=== PATIENT | male | born 1940 | race Two or more races ===

== ENCOUNTER 2025-06-11 14:55 | Emergency (ER) | payer MEDICARE, OTHER, SELFPAY ==
[2025-06-11 15:10] VITALS: BP 133/75; PULSE 60; TEMP 36.5; O2SAT 99; BMI 28.7
--- OUTSIDE RECORDS SUMMARY | 2025-06-11 15:23 | XMS_ITS | Encounter Summary ---
Author Organization Simple Admit tem Address [id number] [address] [place] [address] Care Team Providers Care Search Planner Name Role Phone Unavailable Primary Care Provider Unavailabl e Encounter Details Date Type Department Care Team (Late st Contact Info) Description 05/17/2025 Orders Only [facility] - Medical Oncology [address] [place] [phone] Elisabeth Grayson CMA Social History Tobacco Use Types Packs/Day Years Used Date Smoking Tobacco: Never Assessed Childcare Answer Date Recorded Childcare Unknown 03/10/2019 Employment Answer Date Recorded Employment Unknown 03/10/2019 Sex and Gender Information Value Date Recorded Sex Assigned at Not on file Legal Sex Male 11:48 AM EDT Gender Identity Not on file Sexual Orientation Not on file documented as of this encounter Plan of Treatment Upcoming Encounters Date Type Department Care Team (Late st Contact Info) Description 08/23/2025 11:00 AM EST [facility] [address] [place] [phone] documented as of this encounter Visit Diagnoses Not on filedocumented in this encounter
--- OUTSIDE RECORDS SUMMARY | 2025-06-11 15:23 | XMS_ITS | Encounter Summary ---
Author Organization [facility] Address [address] [place] [address] Care Team Providers Care Aerodynamics Professor Name Role Phone Sharonda Lopez ICING AND GLAZE MAKER Primary Care Provider + [phone] Pao Carlos DO Unavailable [phone] Pao Carlos DO Unavailable [phone] Samara Argueta DO Primary Care Provider [phone] Encounter Details Date Type Department Care Team (Late st Contact Info) Description 07/21/2024 Orders Only [facility] [address] [facility] [address] [place] [address] Samara Argueta DO [address] [facility] [place] [address] Social History Tobacco Use Types Packs/Day Years Used Date Smoking Tobacco: Never Smokeless Tobacco: Never Alcohol Use Standard Drinks/Week Comments Not Currently 0 (1 standard drink = 0.6 oz pur e alcohol) Social Connection and Isolat ion Panel [NHANES] Answer Date Recorded In a typical week, how many times do you talk on the phone with family, friends, or neighbors? More than three times a week 11/30/2023 How often do you get togethe r with friends or relatives? More than three times a week 11/30/2023 How often do you attend chur ch or gnosticism services? Never 11/30/2023 Do you belong to any clubs o r organizations such as druze groups, unions, fraternal or athletic groups, or school groups? No 11/30/2023 How often do you attend meet ings of the clubs or organizations you belong to? Never 11/30/2023 Are you , , di vorced, , never , or living with a partner? 11/30/2023 AUDIT-C Answer Date Recorded Q1: How often do you have a drink containing alcohol? Never 11/30/2023 Q2: How many drinks containi ng alcohol do you have on a typical day when you are drinking? Patient does not drink Q3: How often do you have si x or more drinks on one occasion? Never 11/30/2023 Overall Financial Resource Strain (CARDIA) Answe r Date Recorded How hard is it for you to pa y for the very basics like food, housing, medical care, and heating? Not hard at all 11/30/2023 PHQ-2 Answer Date Recorded Patient Health Questionnaire-2 Score 0 04/17/2023 [facility] - Occupational Stress Questionnaire Answer Date Recorded Do you feel stress - tense, restless, nervous, or anxious, or unable to sleep at night because your mind is troubled all the time - these days? Very much 11/30/2023 Exercise Vital Sign Answer Date Recorde d On average, how many days pe r week do you engage in moderate to strenuous exercise (like a brisk walk)? 0 days 11/30/2023 On average, how many minutes do you engage in exercise at this level? 0 min 11/30/2023 Hunger Vital Sign Answer Date Recorded Within the past 12 months, y ou worried that your food would run out before you got the money to buy more. Never true 11/30/19 24 Within the past 12 months, t he food you bought just didn't last and you didn't have money to get more. Never true 11/30/2023 PRAPARE - Transportation Answer Date Re corded In the past 12 months, has l ack of transportation kept you from medical appointments or from getting medications? No 11/2023 In the past 12 months, has l ack of transportation kept you from meetings, work, or from getting things needed for daily living? No 11/30/2023 Housing Stability Vital Sign Answer Richard e Recorded In the last 12 months, was t here a time when you were not able to pay the mortgage or rent on time? No 11/30/2023 Number of Places Lived in the Last Year Not on f ile 11/30/2023 In the last 12 months, was t here a time when you did not have a steady place to sleep or slept in a longterm (including now)? No 11/30/2023 Sex and Gender Information Value Date Recorded Sex Assigned at Not on file Legal Sex Male 7:18 PM EDT Gender Identity Not on file Sexual Orientation Not on file documented as of this encounter Plan of Treatment Upcoming Encounters Date Type Department Care Team (Late st Contact Info) Description 07/07/2025 10:30 AM EDT [facility] [address] [place] [phone] Pao Carlos DO [address] [place] [address] 07/19/2025 10:15 AM EDT Procedure [facility] [address] [place] [phone] Sherita Guerra DPM [address] [place] [address] documented as of this encounter Procedures Procedure Name Priority Date/Time Associated Diagnosis Comments NM HEPATOBILIARY Routine 07/21/2024 12:58 PM EDT US GALLBLADDER Routine 06/27/2024 1:10 PM EDT documented in this encounter Results * NM hepatobiliary (07/21/2024 12:58 PM EDT) Anatomical Region Laterality Modality Body Nuclear Medicine us Samarakira Argueta DO IMG NM PROCEDURES Final Resul t * US gallbladder (06/27/2024 1:10 PM EDT) Anatomical Region Laterality Modality Gall bladder Ultrasound us Samara Argueta DO IMG US PROCEDURES Final Resul t documented in this encounter Visit Diagnoses Not on filedocumented in this encounter Care Teams Aerodynamics Professor Relationship Specialty Start Date End Date Sharonda Lopez, ICING AND GLAZE MAKER PCP - General 04/17/23 01/16/25 Pao Carlos, DO [address] [facility] [address] [place] [address] PCP - ACO Reach 01/28/24 11/04/24 Pao Carlos, DO [address] [facility] [address] [place] [address] PCP - ACO Reach 11/12/24 12/30/24 Samara Argueta DO [address] [facility] [place] [address] PCP - General Family Medicine 01/17/25 documented as of this encounter
--- OUTSIDE RECORDS SUMMARY | 2025-06-11 15:23 | XMS_ITS | Encounter Summary ---
Author Organization [facility] Address [address] [place] [address] Phone Care Team Providers Care Optical Mechanic Apprentice Name Role Phone Sharonda Lopez Primary Care Prov ider Samara Argueta DO Primary Care Provider [phone] Encounter Details Date Type Department Care Team (Late st Contact Info) Description 11/08/2021 Orders Only [facility] [address] [place] [address] Conversion, Onbase Social History Tobacco Use Types Packs/Day Years Used Date Smoking Tobacco: Never Assessed Sex and Gender Information Value Date Recorded Sex Assigned at Not on file Legal Sex Male 1:06 PM EST Gender Identity Not on file Sexual Orientation Not on file documented as of this encounter Plan of Treatment Upcoming Encounters Date Type Department Care Team (Late st Contact Info) Description 08/04/2025 10:30 AM EST Office Visit [facility] [address] [facility] [address] [place] [phone] Terrell Dominguez DO [address] [place] [address] Scheduled Orders Name Type Priority Associated Diagnoses Orde r Schedule OUTSIDE LAB SCAN Lab Ordered: 11/08/2021 OUTSIDE LAB SCAN Lab Ordered: 11/08/2021 documented as of this encounter Visit Diagnoses Not on filedocumented in this encounter Care Teams Optical Mechanic Apprentice Relationship Specialty Start Date End Date Sharonda Lopez APRN-CNP [address] [facility] [place] [address] PCP - General 07/21/19 03/29/25 Samara Argueta DO [address] [facility] [place] [address] PCP - General 03/30/25 documented as of this encounter
--- OUTSIDE RECORDS SUMMARY | 2025-06-11 15:23 | XMS_ITS | Encounter Summary ---
Author Organization [facility] Address [address] [place] [address] Phone Care Team Providers Care Small Business Consultant Name Role Phone Sharonda Lopez Primary Care Prov ider Samara Argueta DO Primary Care Provider [phone] Encounter Details Date Type Department Care Team (Late st Contact Info) Description 12/05/2023 Scanned Document [facility] [address] [place] [address] Scanning, Generic Provider Social History Tobacco Use Types Packs/Day Years Used Date Smoking Tobacco: Former Cigarettes Q uit: 1982 Smokeless Tobacco: Never Alcohol Use Standard Drinks/Week Comments Not Currently 0 (1 standard drink = 0.6 oz pur e alcohol) Sex and Gender Information Value Date Recorded Sex Assigned at Not on file Legal Sex Male 1:06 PM EST Gender Identity Not on file Sexual Orientation Not on file documented as of this encounter Plan of Treatment Upcoming Encounters Date Type Department Care Team (Late st Contact Info) Description 08/04/2025 10:30 AM EST Office Visit [facility] [address] [facility] [address] [place] [address] Terrell Dominguez DO [address] [facility] [address] [place], [place] [phone] documented as of this encounter Visit Diagnoses Not on filedocumented in this encounter Care Teams Small Business Consultant Relationship Specialty Start Date End Date Sharonda Lopez APRN-CNP [address] [facility] [place] [address] PCP - General 07/21/19 03/29/25 Samara Argueta DO [address] [facility] [place] [address] PCP - General 03/30/25 documented as of this encounter
--- OUTSIDE RECORDS SUMMARY | 2025-06-11 15:23 | XMS_ITS | Encounter Summary ---
Author Organization [facility] Address [address] [place] [address] Phone Care Team Providers Care Informatics Nurse Name Role Phone Sharonda Lopez TERMITE CONTROL REPRESENTATIVE-EASTON Primary Care Prov ider Samara Argueta DO Primary Care Provider [phone] Encounter Details Date Type Department Care Team (Late st Contact Info) Description 01/30/2024 Scanned Document [facility] [address] [place] [phone] Scanning, Generic Provider Social History Tobacco Use [...] on file Sexual Orientation Not on file COVID-19 Exposure Response Date Recorded In the last 10 days, have yo u been in contact with someone who was confirmed or suspected to have Coronavirus/COVID-19? No / Unsure 01/12/2024 7:38 AM EDT documented as of this encounter Plan of Treatment Upcoming Encounters Date Type Department Care Team (Late st Contact Info) Description 08/04/2025 10:30 AM EST Office Visit [facility] [address] [facility] [address] [place] [phone] Terrell Dominguez DO [address] [facility] [address] [place] [address] documented as of this encounter Visit Diagnoses Not on filedocumented in this encounter Additional Health Concerns Assessment Noted Time A fall risk assessment has been complete d for the patient 12/30/2023 10:21 AM EDT documented as of this encounter Care Teams Informatics Nurse Relationship Specialty Start Date End Date Sharonda Lopez APRN-CNP [address] [facility] [place] [address] PCP - General 07/21/19 03/29/25 Samara Argueta DO [address] [facility] [place] [address] PCP - General 03/30/25 documented as of this encounter
--- OUTSIDE RECORDS SUMMARY | 2025-06-11 15:23 | XMS_ITS | Encounter Summary ---
Author Organization [facility] Address [address] [place] [address] Phone Care Team Providers Care Beauty Therapist Name Role Phone Sharonda Lopez WIRE TWISTING MACHINE OPERATOR-EASTON Primary Care Prov ider Samara Argueta DO Primary Care Provider [phone] Encounter Details Date Type Department Care Team (Late st Contact Info) Description 11/22/2024 Scanned Document [facility] [address] [place] [address] Scanning, Generic Provider Social History Tobacco Use [...] Description 08/04/2025 10:30 AM EST Office Visit [facility] [address] [facility] [address] [place] [address] Terrell Dominguez DO [address] [facility] [address] [place], [place] [phone] documented as of this encounter Visit Diagnoses Not on filedocumented in this encounter Additional Health Concerns Assessment Noted Time A fall risk assessment has been complete d for the patient 03/10/2024 1:07 PM EDT documented as of this encounter Care Teams Beauty Therapist Relationship Specialty Start Date End Date Sharonda Lopez APRN-EAST[place] [address] [facility] [place] [facility] [place] [address] PCP - General 07/21/19 03/29/25 Samara Argueta DO [address] [facility] [place] [address] PCP - General 03/30/25 documented as of this encounter
--- OUTSIDE RECORDS SUMMARY | 2025-06-11 15:23 | XMS_ITS | Encounter Summary ---
Author Organization [facility] Address [address] [place] [address] Phone Care Team Providers Care Painter Name Role Phone Sharonda Lopez HOSPICE CARE SALES CONSULTANT-EASTON Primary Care Prov ider Samara Argueta DO Primary Care Provider [phone] Encounter Details Date Type Department Care Team (Late st Contact Info) Description 02/25/2024 Scanned Document [facility] [address] [place] [address] Scanning, Generic Provider Social History Tobacco Use [...] Description 08/04/2025 10:30 AM EST [facility] [address] [facility] [address] [place] [address] Terrell Dominguez DO [address] [facility] [address] [place], [place] [phone] documented as of this encounter Visit Diagnoses Not on filedocumented in this encounter Additional Health Concerns Assessment Noted Time A fall risk assessment has been complete d for the patient 12/30/2023 10:21 AM EDT documented as of this encounter Care Teams Painter Relationship Specialty Start Date End Date Sharonda Lopez APRN-EASTON [address] [facility] [place] [facility] [place] [address] PCP - General 07/21/19 03/29/25 Samara Argueta DO [address] [facility] [place] [address] PCP - General 03/30/25 documented as of this encounter
--- OUTSIDE RECORDS SUMMARY | 2025-06-11 15:23 | XMS_ITS | Encounter Summary ---
Author Organization [facility] Address [address] [place] [address] Phone Care Team Providers Care Office Asst Name Role Phone Sharonda Lopez Primary Care Prov ider Samara Argueta DO Primary Care Provider [phone] Encounter Details Date Type Department Care Team (Late st Contact Info) Description 12/11/2023 Scanned Document [facility] [address] [place] [address] Scanning, Generic Provider Social History Tobacco Use [...] Description 08/04/2025 10:30 AM EST Office Visit [facility] [address] [facility] [address] [place] [address] Terrell Dominguez DO [address] [facility] [address], [address] [place], [place] [phone] documented as of this encounter Visit Diagnoses Not on filedocumented in this encounter Care Teams Office Asst Relationship Specialty Start Date End Date Sharonda Lopez APRN-CNP [address] [facility] [place] [address] PCP - General 07/21/19 03/29/25 Samara Argueta DO [address] [facility] [place] [address] PCP - General 03/30/25 documented as of this encounter
--- OUTSIDE RECORDS SUMMARY | 2025-06-11 15:23 | XMS_ITS | Encounter Summary ---
Author Organization [facility] Address [address] [place] [address] Care Team Providers Care Car Wash Attendant Automatic Name Role Phone Sharonda Lopez NP Primary Care Provider [phone] Pao Carlos DO Unavailable [phone] Pao Carlos DO Unavailable [phone] Samara Argueta DO Primary Care Provider [phone] Encounter Details Date Type Department Care Team (Late st Contact Info) Description 12/05/2023 Abstract [facility] [place] [facility] [address] [facility] [address] [place] [address] Pao Carlos DO [address] [facility] [address] [place] [address] Social History Tobacco Use Types Packs/Day Years [...] often do you attend chur ch or worship services? Never 11/30/2023 Do you belong to any clubs o r organizations such as sabianism groups, unions, fraternal or athletic groups, or [...] Recorded Patient Health Questionnaire-2 Score 0 04/17/2023 [facility] - Occupational Stress Questionnaire Answer Date [...] place to sleep or slept in a nursing home (including now)? No 11/30/2023 Sex and Gender Information Value Date Recorded Sex Assigned at Not on file Legal Sex Male 7:18 PM EDT Gender Identity Not on file Sexual Orientation Not on file documented as of this encounter Plan of Treatment Upcoming Encounters Date Type Department Care Team (Late st Contact Info) Description 07/07/2025 10:30 AM EDT [facility] [address] [place] [phone] Pao Carlos, DO [address] [place] [address] 07/19/2025 10:15 AM EDT Procedure [facility] [address] [place] [phone] Sherita Guerra DPM [address] [place] [address] documented as of this encounter Visit Diagnoses Not on filedocumented in this encounter Care Teams Car Wash Attendant Automatic Relationship Specialty Start Date End Date Sharonda Lopez, DRILL PRESS OPERATOR NUMERICAL CONTROL PCP - General 04/17/23 01/16/25 Pao Carlos, DO [address] [place] [address] PCP - ACO Reach 01/28/24 11/04/24 Pao Carlos DO [address] [place] [address] PCP - ACO Reach 11/12/24 12/30/24 Samara Argueta DO [address] [facility] [place] [address] PCP - General Family Medicine 01/17/25 documented as of this encounter
--- OUTSIDE RECORDS SUMMARY | 2025-06-11 15:23 | XMS_ITS | Encounter Summary ---
Author Organization [facility] Address [address] [place] [address] Phone Care Team Providers Care Barrel Straightener Name Role Phone Sharonda Lopez Primary Care Prov ider Samara Argueta DO Primary Care Provider Encounter Details Date Type Department Care Team (Late st Contact Info) Description 01/03/2023 Orders Only [facility] [address] [place] [address] Conversion, Onbase Social History Tobacco Use Types [...] Description 08/04/2025 10:30 AM EST Office Visit [facility] [address] [facility] [address] [place] [address] Terrell Dominguez DO [address] [place], [place] [phone] Scheduled Orders Name Type Priority Associated Diagnoses Orde r Schedule OUTSIDE LAB SCAN Lab Ordered: 01/03/2023 documented as of this encounter Visit Diagnoses Not on filedocumented in this encounter Care Teams Barrel Straightener Relationship Specialty Start Date End Date Sharonda Lopez APRN-CNP [address] [facility] [place] [address] PCP - General 07/21/19 03/29/25 Samara Argueta DO [address] [facility] [place] [address] PCP - General 03/30/25 documented as of this encounter
--- OUTSIDE RECORDS SUMMARY | 2025-06-11 15:23 | XMS_ITS | Clinical Summary ---
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) Discharge Disposition: Still a Patient 05/25/2025 Orders [facility] [address] [place] [phone] Susan Montiel RN Prostate cancer ([facility]) (Primary Dx) 05/25/2025 Orders Only [facility] [address] [place] [phone] Susan Montiel RN Prostate cancer ([facility]) (Primary Dx) 05/25/2025 Documentation [facility] [address] [place] [phone] Susan Montiel RN 05/25/2025 Orders Only [facility] [address] [place] [address] [phone] Susan Montiel RN Prostate cancer ([facility]) (Primary Dx) 05/25/2025 Travel 05/19/2025 Travel 05/17/2025 Orders Only [facility] - Medical Oncology [address] [place] [phone] Elisabeth Grayson CMA from Last 3 Months Social History Tobacco Use Types Packs/Day Years Used Date Smoking Tobacco: Never Assessed Childcare Answer Date Recorded Childcare Unknown 03/10/2019 Employment Answer Date Recorded Employment Unknown 03/10/2019 Sex and Gender Information Value Date Recorded Sex Assigned at Not on file Legal Sex Male 11:48 AM EDT Gender Identity Not on file Sexual Orientation Not on file Last Filed Vital Signs Vital Sign Reading Time Taken Comments Blood Pressure 103/58 05/25/2025 10:16 AM EDT Pulse 64 05/25/2025 10:16 AM EDT Temperature 37 C (98.6 F) 05/25/2025 10:16 AM EDT Respiratory Rate 18 05/25/2025 10:16 AM EDT Oxygen Saturation 100% 05/25/2025 10:16 AM EDT Inhaled Oxygen Concentration - - Weight 83.7 kg (184 lb 9.6 oz) 05/25/2025 10:16 AM EDT Height 170.2 cm (5' 7 ) 05/25/2025 10:16 AM EDT Body Mass Index 28.91 05/25/2025 10:16 AM EDT Plan of Treatment Upcoming Encounters Date Type Department Care Team (Late st Contact Info) Description 08/23/2025 11:00 AM EST Appointment [facility] - Radiation Oncology [address] [place] [address] Health Maintenance Due Date Last Done Comments Depression Screening 1952 Tobacco Screening 1952 DTaP,Tdap and Td Vaccines (1 - Tdap) 01/08/1959 Fall Risk Screening 01/08/2005 Zoster (Shingles) Vaccine (1 of 2) 09/29/2017 08/04/2017 COVID-19 Vaccine (7 - Pfizer risk 2023- season) 2025 06/22/2024, 07/07/2023, 01/06/2022, Additional history exists Influenza Vaccine 05/30/2025 06/22/2024, , 07/24/2022, Additional history exists Medical Devices Not on file Procedures Procedure Name Priority Date/Time Associated Diagnosis Comments PROSTATIC SPECIFIC ANTIGEN, DIAGNOSTIC Routine 05/25/2025 3:38 PM EDT Prostate cancer ([facility]) from Last 3 Months Results * Prostatic specific antigen, diagnostic (05/25/2025 3:38 PM EDT) PROSTATIC SPEC ANT 0.04 0.00 - 4.00 ng/mL 05/25/2025 10:20 PM EDT [facility] Comment: The method used for this test is Rosalind IdealSeat DXI chemiluminescent immunoassay. Values obtained by different assay methods cannot be used interchangeably. Blood Venous blood / Unknown Venipuncture / Unknown 05/25/2025 3:38 PM EDT 05/25/2025 3:38 PM EDT us Keturah Acevedo MD LAB BLOOD ORDERABLES Final Result [facility] [address] [place] [address], from Last 3 Months Insurance MEDICARE COMMERCIAL
--- OUTSIDE RECORDS SUMMARY | 2025-06-11 15:23 | XMS_ITS | Encounter Summary ---
Author Organization [facility] Address [address] [place] [address] Care Team Providers Care Structural Technician Name Role Phone Pao Carlos DO Unavailable [phone] Sharonda Lopez NP Primary Care Provider [phone] Pao Carlos DO Unavailable [phone] Pao Carlos DO Unavailable [phone] Samara Argueta DO Primary Care Provider [phone] Reason for Visit * Reason Comments Med Refill Encounter Details Date Type Department Care Team (Late st Contact Info) Description 05/03/2023 [facility] [address] [facility] [address] [place] [phone] Pao Carlos, DO [address] [facility] [address] [place], [place] [phone] 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 Never 04/17/2023 Q2: How many drinks containi ng alcohol do you have on a typical day when you are drinking? Patient does not drink Q3: How often do you have si x or more drinks on one occasion? Never 04/17/2023 PHQ-2 Answer Date Recorded Patient Health Questionnaire-2 Score 0 04/17/2023 Sex and Gender Information Value Date Recorded Sex Assigned at Not on file Legal Sex Male 7:18 PM EDT Gender Identity Not on file Sexual Orientation Not on file documented as of this encounter Miscellaneous Notes * Telephone Encounter - Sharonda Sam LPN - 05/05/2023 12:41 PM EDT Approving, but needs appt for additional refills. 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) documented in this encounter Care Teams Structural Technician Relationship Specialty Start Date End Date Pao Carlos DO [address] [place] [address] PCP - ACO Reach 02/20/23 11/27/23 Sharonda Lopez, JOINERY MACHINIST [address] [place] [address] PCP - General 04/17/23 01/16/25 Pao Carlos DO [address] [place] [address] PCP - ACO Reach 01/28/24 11/04/24 Pao Carlos, DO [address] [place] [address] PCP - ACO Reach 11/12/24 12/30/24 Samara Argueta, DO [address] [facility] [place] [address] PCP - General Family Medicine 01/17/25 documented as of this encounter
--- OUTSIDE RECORDS SUMMARY | 2025-06-11 15:23 | XMS_ITS | Encounter Summary ---
Author Organization [facility] Address [address] [place] [address] Phone Care Team Providers Care Physical Therapist Technician Name Role Phone Sharonda Lopez Primary Care Prov ider Samara Argueta DO Primary Care Provider [phone] Encounter Details Date Type Department Care Team (Late st Contact Info) Description 10/28/2022 Orders Only [facility] [address] [place] [address] Conversion, Onbase Social History Tobacco Use Types [...] Description 08/04/2025 10:30 AM EST Office Visit [facility] [address] [facility] [address] [place] [phone] Terrlel Dominguez DO [address] [place] [address] Scheduled Orders Name Type Priority Associated Diagnoses Orde r Schedule OUTSIDE LAB SCAN Lab Ordered: 10/28/2022 OUTSIDE LAB SCAN Lab Ordered: 10/28/2022 documented as of this encounter Visit Diagnoses Not on filedocumented in this encounter Care Teams Physical Therapist Technician Relationship Specialty Start Date End Date Sharonda Lopez APRN-CNP [address] [facility] [place] [address] PCP - General 07/21/19 03/29/25 Samara Argueta DO [address] [facility] [place] [address] PCP - General 03/30/25 documented as of this encounter
--- OUTSIDE RECORDS SUMMARY | 2025-06-11 15:23 | XMS_ITS | Clinical Summary ---
Author Organization [facility] Address [address] [place] [address] Phone Care Team Providers Care Technology Project Manager Name Role Phone Samara Argueta DO Primary Care Provider [phone] Allergies No known active allergies Medications aspirin 81 mg EC tablet Take 1 tablet (81 mg) by mouth once daily. 1 Active HumaLOG Mix 50-50 Insuln U-100 100 unit/mL (50-50) injection Inject under the skin. 1 Active rosuvastatin (Crestor) 40 mg tablet Take 1 tablet (40 mg) by mouth once daily. Active gabapentin (Neurontin) 300 mg capsule Take 1 capsule (300 mg) by mouth early in the morning.. 4 Active nitroglycerin (Nitrostat) 0.4 mg SL tabletIndications :Coronary artery disease involving pechanga coronary artery of pechanga heart without angina pectoris,History of PTCA,Chest pain, unspecified type Place 1 tablet (0.4 mg) under the tongue every 5 minutes if needed for chest pain (report to the ER or call 911 after third dose). May repeat dose every 5 minutes for up to 3 doses total. 15 tablet 1 4 Active clopidogrel (Plavix) 75 mg tabletIndications :History of PTCA Take 1 tablet (75 mg) by mouth once daily. 90 tablet 3 5 11/18/19 Active hydrALAZINE (Apresoline) 50 mg tabletIndications :Essential hypertension Take 1 tablet (50 mg) by mouth 3 times a day. 270 tablet 3 5 05/01/20 26 Active amLODIPine (Norvasc) 10 mg tablet Take 1 tablet (10 mg) by mouth once daily in the morning. Take before meals. Active magnesium oxide (Mag-Ox) 400 mg (241.3 mg elemental) tablet Take 1 tablet by mouth early in the morning.. 5 Active isosorbide mononitrate ER (Imdur) 60 mg 24 hr tabletIndications :Essential hypertension Take 1 tablet (60 mg) by mouth once daily. 90 tablet 3 5 03/30/20 26 Active metoprolol succinate XL (Toprol-XL) 25 mg 24 hr tabletIndications :Essential hypertension TAKE 1 TABLET(25 MG) BY MOUTH DAILY. DO NOT CRUSH OR CHEW 90 tablet 3 Active Active Problems Problem Noted Date Diagnosed Date ACEI/ARB contraindicated 01/27/2025 BMI 28.0-28.9,adult 05/11/2024 Chronic kidney disease 05/11/2024 Abnormal stress test 01/15/2024 Prostate cancer (Multi) 12/30/2023 Chest pain 12/30/2023 Shortness of breath 12/30/2023 Former smoker 12/30/2023 Angina, class III 08/15/2023 Coronary disease 08/15/2023 Diabetes mellitus (Multi) 08/15/2023 Essential hypertension 08/15/2023 History of PTCA 08/15/2023 Hyperlipidemia 08/15/2023 Pacemaker 08/15/2023 Sick sinus syndrome (Multi) 08/15/2023 Encounters Date Type Department Care Team Description 05/03/2025 10:00 AM EDT Office Visit [address] [phone] Hetal Guerra, SYRUP FILTERER-CORPORATE TRAINER BMI 28.0-28.9,adult (Primary Dx); Essential hypertension 05/03/2025 Travel 03/31/[address] [address] Fouzia Landis LPN 03/30/2025 10:30 AM EDT Office Visit [address] [address] Hetal Guerra APRN-CNP BMI 28.0-28.9,adult (Primary Dx); Essential hypertension 03/30/2025 Telephone [facility] [address] [place] [phone] Bambi Clement RN 03/30/2025 Refill [facility] [address] [place] [address] [address] [place] [address] Hetal Guerra APRN-CNP Essential hypertension 03/30/2025 Travel 03/18/2025 Orders Only [facility] [address] [place] [address] Terrell Dominguez DO from Last 3 Months Immunizations Immunization Administration Dates Next Due Flu vaccine, quadrivalent, h igh-dose, preservative free, age 65y+ (FLUZONE) 07/07/2023,07/24/2022,08/08/2021 Flu vaccine, trivalent, pres ervative free, HIGH-DOSE, age 65y+ (Fluzone) 06/22/2024,07/24/2022,08/08/2021,07/05,08/05/2018,08/04/2017 Influenza, Unspecified 09/09/2013,2011,06/26/2011,09/05 Pneumococcal conjugate vacci ne, 13-valent (PREVNAR 13) 08/04/2017 Pneumococcal polysaccharide vaccine, 23-valent, age 2 years and older (PNEUMOVAX 23) 08/05/2018,06/29/2018,06/29/2011 Zoster, live 08/04/2017 Family History Medical History Relation Name Comments Angina Brother Heart disease Brother Heart disease Father Heart disease Mother Relation Name Status Comments Brother Father Mother Social History Tobacco Use Types Packs/Day Years Used Date Smoking Tobacco: Former Cigarettes Q uit: 1982 Smokeless Tobacco: Never Tobacco Cessation:Counseling Given: Not Answered Alcohol Use Standard Drinks/Week Comments Never 0 (1 standard drink = 0.6 oz pur e alcohol) Sex and Gender Information Value Date Recorded Sex Assigned at Not on file Legal Sex Male 1:06 PM EST Gender Identity Not on file Sexual Orientation Not on file Last Filed Vital Signs Vital Sign Reading Time Taken Comments Blood Pressure 114/60 05/03/2025 10:02 AM EDT Pulse 64 05/03/2025 10:02 AM EDT Temperature - - Respiratory Rate - - Oxygen Saturation - - Inhaled Oxygen Concentration - - Weight 82.6 kg (182 lb) 05/03/2025 10:02 AM EDT Height 170.2 cm (5' 7 ) 05/03/2025 10:02 AM EDT Body Mass Index 28.51 05/03/2025 10:02 AM EDT Plan of Treatment Upcoming Encounters Date Type Department Care Team (Late st Contact Info) Description 08/04/2025 10:30 AM EST Office Visit [facility] [address] [facility] [address] [place] [address] Terrell Dominguez DO [address] [facility] [address] [place] [address] Health Maintenance Due Date Last Done Comments Diabetes: Hemoglobin A1C 1940 Diabetes: Urine Protein Screening 1940 Diabetes: Retinopathy Screening 01/08/1950 DTaP/Tdap/Td Vaccines (1 - Tdap) 01/08/1962 RSV High Risk: (Elderly (60+) or Population) (1 - 1-dose 75+ series) 01/08/2015 Zoster Vaccines (2 of 3) 09/29/2017 08/04/2017 COVID-19 Vaccine ( season) 2025 06/22/2024, 07/07/2023, 01/06/2022 Influenza Vaccine (#1) 2025 , 07/07/2023, 07/24/2022, Additional history exists Medicare Annual Wellness Visit (AWV) 06/24/2025 06/23/2024, 2023, 11/18/2019 Lipid Panel 03/18/2026 03/18/2025, 11/03/2019 Pneumococcal Vaccine Completed 08/05/2018, 06/29/2018, 08/04/2017, Additional history exists Welcome to Medicare Visit Discontinued 2023, 2023, 11/18/2019 HIB Vaccines Aged Out No longer eligi ble based on patient's age to complete this topic HPV Vaccines Aged Out No longer eligi ble based on patient's age to complete this topic Hepatitis A Vaccines Aged Out No long er eligible based on patient's age to complete this topic Hepatitis B Vaccines Aged Out No long er eligible based on patient's age to complete this topic IPV Vaccines Aged Out No longer eligi ble based on patient's age to complete this topic Meningococcal Vaccine Aged Out No serg miguelangel eligible based on patient's age to complete this topic Rotavirus Vaccines Aged Out No longer eligible based on patient's age to complete this topic Procedures Procedure Name Priority Date/Time Associated Diagnosis Comments ALANINE AMINOTRANSFERASE Routine 025 10:19 AM EDT AST Routine 03/18/2025 10:19 AM EDT LIPID PANEL Routine 03/18/2025 10:19 AM EDT from Last 3 Months Results * Alanine Aminotransferase (03/18/2025 10:19 AM EDT) ALT 13 9 - 46 U/L EXPO [facility] 03/18/2025 10:1 9 AM EDT 03/18/2025 10:20 AM EDT [facility]25 4:07 AM EDT FASTING:YES FASTING: YES Terrell Dominguez DO LAB BLOOD ORDERABLES Final Result [facility] [address] [facility], [address] [place] [address] * Aspartate Aminotransferase (03/18/2025 10:19 AM EDT) AST 16 10 - 35 U/L EXPO [facility] 03/18/2025 10:1 9 AM EDT 03/18/2025 10:20 AM EDT [facility] 03/19/2025 4:07 AM EDT FASTING:YES FASTING: YES Terrell Dominguez DO LAB BLOOD ORDERABLES Final Result Performing Organization Address City/[facility]/ZIP Co de Phone Number [facility] [address], [address] [place] [address] * Lipid Panel (03/18/2025 10:19 AM EDT) CHOLESTEROL, TOTAL 168 <200 mg/dL [facility] HDL CHOLESTEROL 59 > OR = 40 mg/dL [facility] TRIGLYCERIDES 78 <150 mg/dL [facility] LDL-CHOLESTEROL 92 mg/dL (calc) [facility] Comment: Reference range: <100 Desirable range <100 mg/dL for primary prevention; <70 mg/dL for patients with CHD or diabetic patients with > or = 2 CHD risk factors. LDL-C is now calculated using the Cecilio calculation, which is a validated novel method providing better accuracy than the Friedewald equation in the estimation of LDL-C. Devin SS et al. BUCKY. 2013;310(19): 1656-6849 (http://education.RiverOne/faq/GDS824) CHOL/HDLC RATIO 2.8 <5.0 (calc) [facility] NON HDL CHOLESTEROL 109 <130 mg/dL (calc) [facility] Comment: For patients with diabetes plus 1 major ASCVD risk factor, treating to a non-HDL-C goal of <100 mg/dL (LDL-C of <70 mg/dL) is considered a therapeutic option. 03/18/2025 10:1 9 AM EDT 03/18/2025 10:20 AM EDT Narrative [facility] - 03/19/2025 4:07 AM EDT FASTING:YES FASTING: YES Terrell Dominguez DO LAB BLOOD ORDERABLES Final Result Performing Organization Address City/[facility]/ZIP Co de Phone Number [facility] [address] [place] [address] from Last 3 Months Insurance MEDICARE PART A AND B GENERIC COMMERCIAL MEDICARE PART A AND B GENERIC COMMERCIAL Care Teams Technology Project Manager Relationship Specialty Start Date End Date Samara Argueta DO [address] [place] [address] PCP - General 03/30/25
--- OUTSIDE RECORDS SUMMARY | 2025-06-11 15:23 | XMS_ITS | Encounter Summary ---
Author Organization [facility] [place] [facility] Address [address] [place] [address] Phone Care Team Providers Care Injection Wax Molder Name Role Phone Sharonda Lopez REAL ESTATE SALESPERSON-[place] Primary Care Prov ider Samara Argueta DO Primary Care Provider [phone] Encounter Details Date Type Department Care Team (Late st Contact Info) Description 06/27/2024 Scanned Document [facility] [address] [place] [address] Scanning, Generic Provider Social History Tobacco Use [...] 10:30 AM EST Office Visit [facility] [address] [facility] [address] [place] [address] Terrell Dominguez DO [address] [facility] [address] [place], [place] [phone] documented as of this encounter Visit Diagnoses Not on filedocumented in this encounter Additional Health Concerns Assessment Noted Time A fall risk assessment has been complete d for the patient 03/10/2024 1:07 PM EDT documented as of this encounter Care Teams Injection Wax Molder Relationship Specialty Start Date End Date Sharonda Lopez APRN-[place] [address] [facility] [place] [address] PCP - General 07/21/19 03/29/25 Samara Argueta DO [address] [facility] [place] [address] PCP - General 03/30/25 documented as of this encounter
--- OUTSIDE RECORDS SUMMARY | 2025-06-11 15:23 | XMS_ITS | Encounter Summary ---
Author Organization [facility] Address [address] [place] [address] Phone Care Team Providers Care Transitional Living Specialist Name Role Phone Sharonda Lopez DAILY RELEASE AND DUPE PRINTER-[place] Primary Care Prov ider Samara Argueta DO Primary Care Provider [phone] Encounter Details Date Type Department Care Team (Late st Contact Info) Description 01/23/2024 Scanned Document [facility] [address] [place] [phone] Scanning, Generic Provider Social History Tobacco Use [...] Description 08/04/2025 10:30 AM EST Office Visit [facility] [address] [facility] [address] [place] [phone] Terrell Dominguez DO [address] [facility] [address] [place] [address] documented as of this encounter Visit Diagnoses Not on filedocumented in this encounter Additional Health Concerns Assessment Noted Time A fall risk assessment has been complete d for the patient 12/30/2023 10:21 AM EDT documented as of this encounter Care Teams Transitional Living Specialist Relationship Specialty Start Date End Date Sharonda Lopez APRN-CNP [address] [facility] [place] [address] PCP - General 07/21/19 03/29/25 Samara Argueta DO [address] [facility] [place] [address] PCP - General 03/30/25 documented as of this encounter
--- OUTSIDE RECORDS SUMMARY | 2025-06-11 15:23 | XMS_ITS | Encounter Summary ---
Author Organization [facility] Address [address] [place] [address] Phone Care Team Providers Care Occupational Ther Name Role Phone Sharonda Lopez AGRONOMY INSTRUCTOR-[place]AST[place] Primary Care Prov ider Samara Argueta DO Primary Care Provider [phone] Encounter Details Date Type Department Care Team (Late st Contact Info) Description 01/20/2024 Scanned Document [facility] [address] [place] [phone] Scanning, Generic Provider Social History Tobacco Use [...] Description 08/04/2025 10:30 AM EST Office Visit [facility] [address] [facility] [address] [place] [phone] Terrell Dominguez DO [address] [facility] [address] [place] [address] documented as of this encounter Procedures Procedure Name Priority Date/Time Associated Diagnosis Comments OUTSIDE IMAGING SCAN 01/20/2024 documented in this encounter Results * OUTSIDE IMAGING SCAN (01/20/2024) Anatomical Region Laterality Modality Other Narrative 01/20/2024 Ordered by an unspecified provider. Generic Provider Scanning OUTSIDE SCAN Final Result documented in this encounter Visit Diagnoses Not on filedocumented in this encounter Additional Health Concerns Assessment Noted Time A fall risk assessment has been complete d for the patient 12/30/2023 10:21 AM EDT documented as of this encounter Care Teams Occupational Ther Relationship Specialty Start Date End Date Sharonda Lopez APRN-[place] [address] [facility] [place] [address] PCP - General 07/21/19 03/29/25 Samara Argueta DO [address] [facility] [address] PCP - General 03/30/25 documented as of this encounter
--- NOTE | 2025-06-11 15:42 | CT_ITS ---
The [address] [address] Patient Name: ROSY KENNY MRN: [id number] date: 1940 Sex: M Assigned Patient Location: ER Current Patient Location: ER Accession/Order Number: [id number] Exam Date: 06/11/2025 16:55 Report Date: 06/11/2025 17:30 At the request of: NITHYA SILVA Procedure: CT abdomen pelvis wo con CT Abdomen and Pelvis withoutcontrast TECHNIQUE: Axial imaging with 2-D reconstruction. . The CT exam was performed using one or more the following dose reduction techniques: Automated exposure control, adjustment of the MA and/or Kv according to patient size, or use of the iterative reconstruction technique. COMPARISON: None History: Left perirectal pain LIMITATIONS: None LOWER THORAX Unremarkable LIVER: Unremarkable GALLBLADDER: No gallbladder abnormality identified. BILE DUCTS: No dilatation SPLEEN: Unremarkable PANCREAS: Unremarkable ADRENAL GLANDS: Unremarkable KIDNEYS:Cystic changes no nephrolithiasis. No hydronephrosis. AORTA: No abdominal aortic aneurysm identified. RETROPERITONEUM: No significant retroperitoneal abnormalities identified. MESENTERY:Unremarkable STOMACH:Unremarkable SMALL BOWEL: The small bowel loops are nondistended. APPENDIX: The appendix is normal. COLON: Unremarkable URINARY BLADDER: Urinary bladder is unremarkable. REPRODUCTIVE SYSTEM: Reproductive structures are unremarkable. PNEUMOPERITONEUM: None PERITONEAL FLUID:None BONY STRUCTURES: Unremarkable ABDOMINAL WALL: Unremarkable CT/CT abdomen pelvis wo con IMPRESSION: No acute findings. No obstructive uropathy. Impression dictated by: Aryan Rondon M.D. 06/11/2025 5:30 PM Dictation Location: [facility] Electronically authenticated by: [id number] Y Date: 06/11/2025 17:30
[2025-06-11 16:33] LABS: Hematocrit 35.3 % (42.0-54.0); Hemoglobin 11.9 g/dL (14.0-18.0); Immature Granulocytes Abs Auto 0.02 10^3/uL (0.00-0.03); Immature Granulocytes Pct Auto 0.2 % (0.0-0.5); Lymphocytes Absolute Auto 2.3 10^3/uL (1.2-3.8); Mean Corpuscular HGB Conc 33.7 g/dL (29.9-35.2); Mean Corpuscular Hemoglobin 27.7 pg (25.9-34.0); Mean Corpuscular Volume 82.1 fL (80.0-94.0); Platelet Count 229 10^3/uL (150-450); Red Blood Count 4.30 10^6/uL (4.70-6.10); White Blood Count 8.4 10^3/uL (4.0-11.0)
[2025-06-11 16:44] LABS: Alanine Aminotransferase 26 U/L (16-63); Albumin Globulin Ratio 1.0; Albumin Level 4.0 g/dL (3.4-5.0); Alkaline Phosphatase 83 U/L (46-116); Anion Gap 16.8; Aspartate Amino Transferase 18 U/L (15-37); Blood Urea Nitrogen 33.0 mg/dL (7.0-18.0); Calcium 9.3 mg/dL (8.5-10.1); Carbon Dioxide 24.8 mmol/L (21.0-32.0); Chloride 102 mmol/L (98-107); Estimated GFR (African America 34 (>=60 mL/min/1.73m^2); Estimated GFR (Non-African Ame 28 (>=60 mL/min/1.73m^2); Globulin 3.9 g/dL; Glucose 235 mg/dL (74-106); Potassium 4.6 mmol/L (3.5-5.1); Sodium 139 mmol/L (136-145); Total Protein 7.9 g/dL (6.4-8.2)
--- NOTE | 2025-06-11 19:17 | ED.SKABFB1 ---
HPI - Skin/Abscess/Foreign Bdy General Chief complaint: Skin/Abscess/Foreign Body Stated complaint: LUMP ON BUTTOCK Time Seen by Provider: 06/11/25 15:19 Source: patient Mode of arrival: walk-in History of Present Illness HPI narrative: 85-year-old male presents to the ER with a complaint of a firm, grape-sized mass on the left buttock. He states the mass has been present for several months but became more irritated today after a 4-hour drive home from [place]. He reports that at times the mass has felt larger but has never drained or opened. The mass is not red, warm, or painful to touch but feels irritated from sitting. He denies fever, chills, nausea, abdominal pain, changes in bowel or bladder function, or urinary retention. He has a history of prostate cancer and is concerned about possible metastasis. Related Data Home Medications ?Medication ?Instructions ?Recorded ?Confirmed amlodipine 10 mg tablet 10 mg PO DAILY 06/11/25 06/11/25 aspirin 81 mg capsule 81 mg PO DAILY 06/11/25 06/11/25 clopidogrel 75 mg tablet (Plavix) 75 mg PO DAILY 06/11/25 06/11/25 gabapentin 300 mg capsule 300 mg PO DAILY 06/11/25 06/11/25 hydralazine 50 mg tablet 50 mg PO TID 06/11/25 06/11/25 insulin lispro protamine-lispro 17 unit subcut DAILY 06/11/25 06/11/25 100 unit/mL (50-50) subcutaneous pen (Humalog Mix 50-50 KwikPen) insulin lispro protamine-lispro 22 unit subcut QAM 06/11/25 06/11/25 100 unit/mL (50-50) subcutaneous pen (Humalog Mix 50-50 KwikPen) Previous Rx's ?Medication ?Instructions ?Recorded amoxicillin 500 mg-potassium 1 tab PO TID 10 days #30 tabs 06/11/25 clavulanate 125 mg tablet (Augmentin) Allergies Allergy/AdvReac Type Severity Reaction Status Date / Time No Known Drug Allergies Allergy Verified 06/11/25 15:05 PFSH PFSH Social History Little interest or pleasure in doing things: not at all Feeling down, depressed, or hopeless: not at all Exam Narrative Exam Narrative: General: Alert, oriented, well-appearing, no acute distress. Vitals: Stable. Skin / Buttock: Grape-sized firm, mobile mass noted on the left buttock. No overlying erythema, warmth, drainage, or fluctuance. No streaking, no pilonidal cyst noted. Unable to determine exact depth on palpation, unclear if it tracks deeper toward the rectal area. No surrounding induration. Rectal: No tenderness on exam, no fluctuance or masses palpated. Abdomen: Soft, non-tender, non-distended. Neurovascular: Normal strength, sensation, and pulses in lower extremities. Constitutional Vital Signs, click to edit/add: Last Vital Signs Temp 97.7 F 06/11/25 15:10 Pulse 62 06/11/25 19:34 Resp 20 06/11/25 19:34 BP 136/68 06/11/25 19:34 Pulse Ox 96 06/11/25 19:34 O2 Del Method Room Air 06/11/25 19:34 Course Vital Signs Vital signs: Vital Signs Temperature 97.7 F 06/11/25 15:10 Pulse Rate 60 06/11/25 15:10 Respiratory Rate 16 06/11/25 15:10 Blood Pressure 133/75 06/11/25 15:10 Pulse Oximetry 99 06/11/25 15:10 Oxygen Delivery Method Room Air 06/11/25 15:10 Temperature 97.7 F 06/11/25 15:10 Pulse Rate 62 06/11/25 19:34 Respiratory Rate 20 06/11/25 19:34 Blood Pressure 136/68 06/11/25 19:34 Pulse Oximetry 96 06/11/25 19:34 Oxygen Delivery Method Room Air 06/11/25 19:34 MDM - Skin/Abscess/Foreign Bdy MDM Narrative Medical decision making narrative: MDM: 85-year-old male presents with a several-month history of a left buttock mass, which became more irritated after prolonged sitting today. On exam, mass is firm and mobile without erythema, warmth, fluctuance, or drainage, making acute abscess or cellulitis less likely. No rectal tenderness or involvement noted on exam. CT pelvis was obtained, which revealed a cystic structure consistent with a sebaceous cyst or similar cystic lesion with mild surrounding inflammatory changes. Clinically, there is no evidence of active infection (no redness, warmth, fluctuance, or systemic symptoms), so incision and drainage is not indicated at this time. Differential includes sebaceous cyst (most likely), less likely lipoma or abscess in evolution due to the lack of fluctuance and redness.. Discussed findings and management options extensively with patient and his daughter, including surgical referral for definitive excision here in the ED versus empiric antibiotics to reduce possible early inflammation/infection. After shared decision-making, patient elected to trial antibiotics, warm compresses, and following up with PCP for possible surgery referral. Plan is to start Augmentin 875 mg PO BID x 10 days, apply warm compresses or perform sitz baths several times daily, and follow up with PCP on Friday for re-evaluation and referral for surgical excision if needed. Return precautions discussed for redness, swelling, drainage, fever, worsening pain, or inability to sit. Patient and daughter verbalized understanding and are agreeable to plan. Discharged home in stable condition. Differential Diagnosis Differential diagnosis: Likely abscess of skin or subcutaneous tissue, cellulitis and insect bites Medical Records Attestation: I reviewed the patient's medical records. Lab Data Attestation: I reviewed the patient's lab results. Labs: Lab Results 06/11/25 Range/Units 16:15 WBC 8.4 (4.0-11.0) 10^3/uL RBC 4.30 L (4.70-6.10) 10^6/uL Hgb 11.9 L (14.0-18.0) g/dL Hct 35.3 L (42.0-54.0) % MCV 82.1 (80.0-94.0) fL MCH 27.7 (25.9-34.0) pg MCHC 33.7 (29.9-35.2) g/dL RDW 13.4 (11.0-15.0) % Plt Count 229 (150-450) 10^3/uL MPV 9.8 (9.5-13.5) fL Neut % (Auto) 65.4 (43.0-75.0) % Lymph % (Auto) 27.5 (20.5-60.0) % [place] % (Auto) 5.6 (1.7-12.0) % Eos % (Auto) 1.1 (0.9-7.0) % Baso % (Auto) 0.2 (0.2-2.0) % Neut # (Auto) 5.5 (1.4-6.5) 10^3/uL Lymph # (Auto) 2.3 (1.2-3.8) 10^3/uL [place] # (Auto) 0.5 (0.3-0.8) 10^3/uL Eos # (Auto) 0.1 (0.0-0.7) 10^3/uL Baso # (Auto) 0.0 (0.0-0.1) 10^3/uL Abs Immat Gran (auto) 0.02 (0.00-0.03) 10^3/uL Imm/Tot Granulo (auto) 0.2 (0.0-0.5) % Sodium 139 (136-145) mmol/L Potassium 4.6 (3.5-5.1) mmol/L Chloride 102 (98-107) mmol/L Carbon Dioxide 24.8 (21.0-32.0) mmol/L Anion Gap 16.8 BUN 33.0 H (7.0-18.0) mg/dL Creatinine 2.25 H (0.70-1.30) mg/dL Est GFR ( Amer) 34 L (>=60 mL/min/1.73m^2) Est GFR (Non-Af Amer) 28 L (>=60 mL/min/1.73m^2) BUN/Creatinine Ratio 14.7 Glucose 235 H (74-106) mg/dL Calcium 9.3 (8.5-10.1) mg/dL Total Bilirubin 0.3 (0.2-1.0) mg/dL AST 18 (15-37) U/L ALT 26 (16-63) U/L Alkaline Phosphatase 83 (46-116) U/L Total Protein 7.9 (6.4-8.2) g/dL Albumin 4.0 (3.4-5.0) g/dL Globulin 3.9 g/dL Albumin/Globulin Ratio 1.[address] scan - abdomen: Attestation: I have reviewed the pertinent imaging results. Radiologist's impression: ITS Impressions Abdomen/Pelvis CT 06/11/25 15:42 IMPRESSION: No acute findings. No obstructive uropathy. Impression dictated by: Aryan Rondon M.D. 06/11/2025 5:30 PM Dictation Location: [place] [address] Electronically authenticated by: [id number] Y Date: 06/11/2025 17:30 ADDENDUM: 06/11/251816 IMPRESSION: No acute findings. No obstructive uropathy. Impression dictated by: Aryan Rondon M.D. 06/11/2025 5:30 PM Dictation Location: [place] [address] Electronically authenticated by: [id number] Y Date: 06/11/2025 17:30 Discharge Plan Discharge Chief Complaint: Skin/Abscess/Foreign Body Clinical Impression: Sebaceous cyst Patient Disposition: Home, Self-Care Time of Disposition Decision: 19:24 Condition: Good Prescriptions / Home Meds: New amoxicillin-pot clavulanate [Augmentin] 500-125 mg tablet 1 tab PO TID 10 Days Qty: 30 0RF No Action amlodipine 10 mg tablet 10 mg PO DAILY aspirin 81 mg capsule 81 mg PO DAILY clopidogrel [Plavix] 75 mg tablet 75 mg PO DAILY gabapentin 300 mg capsule 300 mg PO DAILY Humalog Mix 50-50 KwikPen 100 unit/mL (50-50) insulin pen 22 unit subcut QAM Humalog Mix 50-50 KwikPen 100 unit/mL (50-50) insulin pen 17 unit subcut DAILY hydralazine 50 mg tablet 50 mg PO TID Print Language: Cymraes Instructions: Dermal Cyst Excision (DC), Cyst (ED) Additional Instructions: Discharge Instructions ? Left Buttock Mass (Likely Sebaceous Cyst) What We Found: Today you were evaluated for a small, firm lump on your left buttock. A CT scan showed a cystic structure, likely a sebaceous cyst (a benign pocket of fluid under the skin). There is some mild inflammation around it, but there are no signs of active infection (no redness, warmth, or pus). What You Should Do at Home: Antibiotic: Take Augmentin 875 mg by mouth every 12 hours for 10 days until finished. Warm Compresses / Sitz Baths: Apply a warm compress or sit in a warm bath (sitz bath) several times a day to help reduce irritation and promote healing. Keep Area Clean: Wash gently with soap and water once a day and pat dry. Avoid Pressure: Try to avoid sitting directly on the area for prolonged periods if it is uncomfortable. Follow-Up: Call your primary care provider on Friday to schedule a follow-up appointment. Ask about a referral to a surgeon or spline rolling machine job setter for possible removal of the cyst, which is the only way to completely prevent it from coming back. When to Return to the ER or Call Your Doctor Right Away: Redness, swelling, or warmth develops around the area The area becomes very painful or begins to drain pus Fever or chills Trouble sitting, walking, or controlling bowel movements Any other concerning or rapidly worsening symptoms Referrals: Samara Rojas DO [Primary Care Provider] - 1 week Discharge Date/Time: 06/11/25 19:50
[2025-06-11 19:34] VITALS: BP 136/68; PULSE 62; O2SAT 96
== END 2025-06-11 19:50 | disposition home or self-care (01) ==
PROVIDERS: Physician Assistant; Emergency Provider Emergency Medicine; PCP Student in an Organized Health Care Education/Training Program
DX: L72.3 Sebaceous cyst (principal); C61 Malignant neoplasm of prostate
CPT/HCPCS: 36415; 74176; 80053; 85025; 99284